=== PATIENT | female | born 1985 | race Caucasian/White ===

== ENCOUNTER 2021-10-03 16:27 | Inpatient (IN) | payer OTHER ==
[~2021-10-03] VITALS: Ht 167.6 cm; Wt 91.8 kg
[2021-10-04] VITALS (8 sets, daily range): BP systolic 132–142; BP diastolic 77–94; PULSE 64–86; TEMP 98–98.7
--- NOTE | 2021-10-04 19:10 | NUR ---
Ambulatory to unit for [employer] induction, accompanied by spouse. Oriented to room, monitor, plan of care.
[2021-10-04 19:56] LABS: BASO % 0.4 % (0.0-2.0); EOS # 0.2 K/mm3 (0.0-0.7); EOS % 1.7 % (0.0-4.0); GRAN # 7.6 K/mm3 (1.4-6.5); GRAN % 69.3 % (42.2-75.2); HEMOGLOBIN 11.6 g/dl (12.5-16.0); LYMPH # 2.4 K/mm3 (1.2-3.4); LYMPH % 21.7 % (20.0-51.0); MEAN CELL VOLUME 82 fl (80.0-100.0); MEAN CORPUSCULAR HEMOGLOBIN 29 pg (27-31); MEAN CORPUSCULAR HGB CONC 35 g/dl (33.0-37.0); MEAN PLATELET VOLUME 11.1 fl (7.4-10.4); MONO # 0.7 K/mm3 (0.1-0.6); MONO % 6.3 % (1.7-9.3); PLATELET COUNT 258 K/mm3 (130-400); RED BLOOD COUNT 4.07 M/mm3 (4.10-5.30); REDCELL DISTRIBUTION WIDTH-CV 13.8 % (11.5-14.5)
[2021-10-04 19:57] LABS: HEMATOCRIT 33.5 % (37.0-47.0)
[2021-10-04 20:12] LABS: ALBUMIN 2.8 gm/dL (3.5-5.0); BILIRUBIN,TOTAL 0.2 mg/dL (0.2-1.2); CALCIUM 9.2 mg/dL (8.4-10.2); CREATININE, serum 0.74 mg/dL (0.57-1.11); POTASSIUM 4.2 mmol/L (3.5-4.5); TOTAL PROTEIN 6.3 gm/dL (6.2-8.1)
[2021-10-05] VITALS (68 sets, daily range): BP systolic 89–196; BP diastolic 56–106; PULSE 55–87; TEMP 97.4–98.6
--- NOTE | 2021-10-05 | NUR ---
New plan of care reviewed with pt and spouse. Vistaril 50mg po given. Lights dimmed, to LL with warm blanket to R hip and lower back.
[2021-10-05] MEDS ORDERED: PRENATAL TABLET PO (03:26)
[2021-10-05] MEDS ORDERED: NORMODYNE100 MG PO (03:26)
--- NOTE | 2021-10-05 09:43 | NUR ---
PT SITTING ON EDGE OF BED FOR EPIDURAL PLACEMENT. DIFFICULTY TRACING EFM/TOCO DUE TO MATERNAL POSITIONING. 0943: TEST DOSE PER MARILYN WISE SENIOR TELLER. PT TOLERATED PROCEDURE WELL, VITAL SIGNS REMAIN STABLE THROUGHOUT. ASSISTED BACK TO SEMI FOWLERS POSITION. CATEGORY 1 TRACING NOTED UPON RETURNING TO LYING POSITION IN BED.
--- NOTE | 2021-10-05 10:10 | NUR ---
AT BEDSIDE. SVE /-2, AROM @ 1010 WITH CLEAR FLUID NOTED. VERBAL ORDERS FOR PT TO TAKE HOME DOSE OF PO LABETALOL AT THIS TIME. WILL CONTINUE TO MONITOR VITALS.
--- NOTE | 2021-10-05 12:40 | NUR ---
AT BEDSIDE, SVE /-2, FSE PLACED AT THIS TIME, PT PLACED IN SHANNON POSITION AND IN STABLE CONDITION UPON EXITING ROOM
--- NOTE | 2021-10-05 17:30 | NUR ---
AT BEDSIDE. SVE 3/-2 WITH A SWOLLEN CERVIX NOTED ON ANTERIOR LIP PER REPORT. PT TEARFUL AND STATES "I CAN'T DO THIS MUCH LONGER". EDUCATION PROVIDED ON POTENTIAL NEED FOR SECTION. PT REQUESTING TO HAVE CSECTION NOW RATHER THAN LATER. DECISION TO PROCEED WITH CSECTION AT 1735.
[2021-10-06 02:20] VITALS: BP 132/76; PULSE 71; TEMP 98.8
[2021-10-06 07:30] VITALS: BP 107/82; PULSE 75
--- NOTE | 2021-10-06 10:12 | NUR ---
Initial visit; Parents thanked T[employer]er for offering congratulations and God's blessings for the of their son. Tube Backer thanked family for choosing [facility].
[2021-10-06 11:46] VITALS: BP 132/72; PULSE 80; TEMP 98.9
[2021-10-06 16:26] VITALS: BP 133/81; PULSE 79
[2021-10-06 20:30] VITALS: BP 114/53; PULSE 84; TEMP 98.6
[2021-10-07 08:20] VITALS: BP 128/71; PULSE 82; TEMP 98.2
[2021-10-07] MEDS ORDERED: IBU800 M1 PO (08:26)
[2021-10-07] MEDS ORDERED: PERCOCET 325 MG1 TA2 PO (08:26)
== END 2021-10-07 13:30 | disposition home or self-care (01) | DRG 788 ==
LOC: LDR 10-04 16:27 → OB 10-04 18:56 → LDR 10-04 19:23 → OB 10-05 20:11
PROVIDERS: ADMIT Student in an Organized Health Care Education/Training Program
PROC: 3E0P7VZ Introduction of Hormone into Female Reproductive, Via Natural or Artificial Opening (ICD-10-PCS; 2021-10-04)
PROC: 10D00Z1 Extraction of Products of Conception, Low, Open Approach (ICD-10-PCS; principal; 2021-10-05)
PROC: 10907ZC Drainage of Amniotic Fluid, Therapeutic from Products of Conception, Via Natural or Artificial Opening (ICD-10-PCS; 2021-10-05)
PROC: 3E033VJ Introduction of Other Hormone into Peripheral Vein, Percutaneous Approach (ICD-10-PCS; 2021-10-05)
DX: O13.4 Gestational [pregnancy-induced] hypertension without significant proteinuria, complicating childbirth (principal); O34.03 Maternal care for unspecified congenital malformation of uterus, third trimester; O62.0 Primary inadequate contractions; Q51.810 Arcuate uterus; O69.81X0 Labor and delivery complicated by cord around neck, without compression, not applicable or unspecified; Z3A.39 39 weeks gestation of pregnancy; Z37.0 Single live birth
CPT/HCPCS: J0690; J1100; J1885; J2405; J2590; J7120

== ENCOUNTER → 2023-10-01 | Outpatient (CLI) | payer BC ==
[~2023-10-01] MED LIST: IBU800 M1 PO; NORMODYNE100 MG PO; PERCOCET 325 MG1 TA2 PO; PRENATAL TABLET PO; PROBIOTIC ACID1 EAC3 PO
--- NOTE | 2023-10-01 15:44 | NUR ---
Pt, Tiesha Cordoba, presents for outpatient consult with 11 week old baby boy, Tre Cordoba. Pt states Tre leaks milk with both breast and bottle feeding, that he pops on and off the breast in the afternoon, evening feedings, and wonders if he has a lip tie. Tre was born on [birth year] and weighed 7# 14.3oz (3580 gms). Pt states Tre had a tongue tie released after discharge from the hospital. At this time it is well healed. Today Tre weighs 14# 8oz (6580 gms). Pt places Tre to breast in the ususal fashion, he is a bit fussy and impatient and when he does latch it is shallow. LC attempts to get Tre latched a little deeper, coaching pt on off-centered latch and compression of areola into the mouth a little deeper with latching. Tre stays on for a little bit longer but does not sustain latch for long. Because of Tre did not settle in and have an ongoing latch, LC was not able to specify a problem other than the shallow latch. The top lip does extend well. Suggestions include working on deeper latch, trying to catch Tre's chin and roll the top lip up. Also discussed making sure bottle nipple sits the full distance into Tre's latch. Tre will start day care next week and pt will be able to evaluate milk supply which could be a contributing factor to the afternoon/evening feeding concerns. With the limited time he did have on the breast, Tre transfered 1oz during this consult. POC: Work on deeper latch. F/U: As scheduled with physicians, with LC as desired. Questions invited and answered.
== END ==
LOC: LAC 10:59
DX: Z39.1 Encounter for care and examination of lactating mother (principal); Z71.89 Other specified counseling